=== PATIENT | male | born 1980 | race Hispanic/Latino ===

== ENCOUNTER 2016-12-25 14:36 | Emergency (ER) | payer OTHER, BC ==
[2016-12-25 14:48] VITALS: BMI 22.8
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
[2016-12-25 15:21] VITALS: BP 130/72; PULSE 96; RESP 17; TEMP 99; O2SAT 96
== END 2016-12-25 15:20 | disposition home or self-care (01) ==
LOC: ED 14:36
DX: Z04.1 Encounter for examination and observation following transport accident (principal); V49.49XA Driver injured in collision with other motor vehicles in traffic accident, initial encounter; Y92.410 Unspecified street and highway as the place of occurrence of the external cause; Y99.8 Other external cause status